=== PATIENT | female | born 1970 | race Caucasian/White ===

== ENCOUNTER 2020-05-09 11:09 | Outpatient (CLI) | payer OTHER, SELFPAY ==
--- NOTE | 2020-05-09 11:18 | MM_ITS ---
WS: [id number] BILATERAL SCREENING MAMMOGRAM WITH JOSE J DISPLACEMENT VIEWS. CAD PERFORMED. HISTORY: SCREENING COMPARISON: 03/08/2019 and 11/22/2018 Bilateral craniocaudal and mediolateral like views are performed. Jose J displacement views in CC and MLO projection also performed. Breasts composition: The breasts are heterogeneously dense, which may obscure small masses. Calcification or biopsy clip in the anterior LEFT breast. Scattered asymmetries are stable since the prior study. Implants are intact. MM/[id number] IMPRESSION: BI-RADS: 2-Benign FOLLOW-UP: 1 Year Follow-up
== END 2020-05-09 11:10 | disposition home or self-care (01) ==
LOC: RADSHAW 11:16
PROVIDERS: Visit Provider Family Medicine
DX: Z12.31 Encounter for screening mammogram for malignant neoplasm of breast (principal)
CPT/HCPCS: 77067

== ENCOUNTER 2021-05-15 09:15 | Outpatient (CLI) | payer OTHER, SELFPAY ==
--- NOTE | 2021-05-15 09:19 | MM_ITS ---
WS: [id number] Exam: [id number] Date/Time of Exam: 05/15/2021 9:21 AM Reason For Exam: SCREENING VIEWS: MLO and CC views both breasts. Breast implant displacement MLO and CC views also included Comparison made with prior exam of 08/17/2017, 11/22/2018, and 05/09/2020.. Findings: No suspicious mass or tumor calcification noted. Stable appearing nodular densities in both breasts.. Heterogeneously dense MM/[id number] Impression: BI-RADS: 2-Benign FOLLOW-UP: 1 Year Follow-up This mammogram was also analyzed by the Computer Aided Detection System R2 Imag e [employer].
== END 2021-05-15 09:16 | disposition home or self-care (01) ==
LOC: RADSHAW 09:19
PROVIDERS: PCP Nurse Practitioner Family; Visit Provider Nurse Practitioner Family
DX: Z12.31 Encounter for screening mammogram for malignant neoplasm of breast (principal)
CPT/HCPCS: 77067

== ENCOUNTER 2022-05-29 09:11 | Outpatient (CLI) | payer OTHER, SELFPAY ==
--- NOTE | 2022-05-29 09:22 | MM_ITS ---
WS: [id number] BILATERAL SCREENING DIGITAL BREAST MAMMOGRAPHY WITH JOSE J DISPLACEMENT VIEWS. CAD PERFORMED. HISTORY: SCREENING COMPARISON: 05/15/2021 and 05/07/2020 Bilateral craniocaudal and mediolateral oblique views are performed with tomosynthesis and SM. Jose J displacement views in CC and MLO projection also performed. Breasts composition: There are scattered areas of fibroglandular density. Implants are intact. Simil ar to the prior studies. Benign calcifications. No suspicious calcification or distortion. MM/[place] [id number] IMPRESSION: BI-RADS: 2-Benign FOLLOW-UP: 1 Year Follow-up
== END 2022-05-29 09:12 | disposition home or self-care (01) ==
PROVIDERS: PCP Nurse Practitioner Family; Visit Provider Nurse Practitioner Family
DX: Z12.31 Encounter for screening mammogram for malignant neoplasm of breast (principal)
CPT/HCPCS: 77063; 77067

== ENCOUNTER 2023-07-01 11:19 | Outpatient (CLI) | payer OTHER, SELFPAY ==
--- NOTE | 2023-07-01 11:34 | MM_ITS ---
WS: [id number] VIEWS: MLO and CC views both breasts. 3D digital tomosynthesis is also included in this exam. Breast implant displacement CC and MLO views included. Comparison made with prior exam of 08/17/2017, 11/22/2018, 05/09/2020, 05/29/2022.. Findings: There was no sign of mass, architectural distortion or suspicious calcification in either breast. Osiel ateral breast implants are intact as visualized. The breasts are heterogeneously dense which may obsc ure small masses Impression: MM/[place] [id number] BI-RADS: 2-Benign finding. FOLLOW-UP: 1 Year Follow-up This mammogram was also analyzed by the Computer Aided Detection System R2 Imag e [employer].
== END 2023-07-01 11:20 | disposition home or self-care (01) ==
LOC: MOBLMAM 11:32 → RAD 11:34
PROVIDERS: PCP Nurse Practitioner Family; Visit Provider Nurse Practitioner Family
DX: Z12.31 Encounter for screening mammogram for malignant neoplasm of breast (principal)
CPT/HCPCS: 77063; 77067

== ENCOUNTER 2024-07-07 08:57 | Outpatient (CLI) | payer OTHER, SELFPAY ==
--- NOTE | 2024-07-07 09:12 | MM_ITS ---
WS: [id number] BILATERAL SCREENING DIGITAL BREAST MAMMOGRAPHY WITH JOSE J DISPLACEMENT VIEWS. CAD PERFORMED. HISTORY: SCREENING COMPARISON: 07/01/2023, 05/29/2022, 05/09/2020 and 03/08/2019 Bilateral craniocaudal and mediolateral oblique views are performed with tomosynthesis and SM. Jose J displacement views in CC and MLO projection also performed. Breasts composition: The breasts are heterogeneously dense, which may obscure small masses. Retropectoral implants are intact. Reidentified is a stable nodule in the posterior LEFT breast which is just anterior to the implant. There are additional calcifications and asymmetries which are all s table. No adverse changes. No new mass or calcification. MM/MM scr tomosynthesis [id number] IMPRESSION: BI-RADS: 2 - Benign FOLLOW-UP: 1 Year Follow-up
== END 2024-07-07 08:58 | disposition home or self-care (01) ==
LOC: RAD 08:58
DX: Z12.31 Encounter for screening mammogram for malignant neoplasm of breast (principal); R92.333 Mammographic heterogeneous density, bilateral breasts; Z98.82 Breast implant status; N64.89 Other specified disorders of breast; R92.1 Mammographic calcification found on diagnostic imaging of breast; N63.20 Unspecified lump in the left breast, unspecified quadrant
CPT/HCPCS: 77063; 77067